=== PATIENT | female | born 1990 | race Caucasian/White ===

== ENCOUNTER 2017-08-06 09:38 | Emergency (ER) | payer BC ==
[2017-08-06 10:46] VITALS: BP 125/67
--- NOTE | 2017-08-06 11:05 | UC ---
Ear Complaint HPI - HPI Summary HPI Summary: patient had an upper respiratory infection all week long---last nigh she developed worsening right ear pain and decreased hearing--- - History of Current Complaint Chief Complaint: UCEar Stated Complaint: CONGESTION/RT EAR COMP Time Seen by Provider: 08/06/17 10:57 Hx Obtained From: Patient Hx Last Menstrual Period: ~07/09/17 ?: No Onset/Duration: Sudden Onset Pain Intensity: 3 Pain Scale Used: 0-10 Numeric Aggravating Factors: Nothing Alleviating Factors: Nothing Associated Signs/Symptoms: Positive: Hearing Loss, URI Symptoms - Allergies/Home Medications Allergies/Adverse Reactions: Allergies Allergy/AdvReac Type Severity Reaction Status Date / Time No Known Allergies Allergy Verified 08/06/17 10:41 Home Medications: Home Medications Guaifenesin/Dextromethorphan [Mucinex Dm ER 1,200-60 mg Tab] 1 tab PO Q12H PRN 08/06/17 [History Confirmed 08/06/17] PMH/Surg Hx/FS Hx/Imm Hx Previously Healthy: Yes - Surgical History Surgical History: None - Family History Known Family History: Positive: None - Social History Occupation: Employed Full-time Lives: With Family Alcohol Use: None Substance Use Type: None Smoking Status (MU): Never Smoked Tobacco Review of Systems Constitutional: Negative Skin: Negative Eyes: Negative ENT: Ear Ache - right Respiratory: Negative Cardiovascular: Negative Gastrointestinal: Negative Genitourinary: Negative Motor: Negative Neurovascular: Negative Musculoskeletal: Negative Neurological: Negative Psychological: Negative Is Patient Immunocompromised?: No All Other Systems Reviewed And Are Negative: Yes Physical Exam Triage Information Reviewed: Yes Appearance: Well-Appearing, No Pain Distress, Well-Nourished Vital Signs: Initial Vital Signs Temp 98.4 F 08/06/17 10:39 Pulse 78 08/06/17 10:39 Resp 16 08/06/17 10:39 BP 125/67 08/06/17 10:39 Pulse Ox 100 08/06/17 10:39 Vital Signs Reviewed: Yes Eye Exam: Normal Eyes: Positive: Conjunctiva Clear ENT Exam: Normal ENT: Positive: Normal ENT inspection, Hearing grossly normal, Pharynx normal, Nasal congestion, TMs normal - left---right is occluded with cerumen. Negative : Tonsillar swelling, Tonsillar exudate, Trismus, Muffled voice, Hoarse voice, Dental tenderness Dental Exam: Normal Neck exam: Normal Neck: Positive: Supple, Nontender, No Lymphadenopathy Respiratory Exam: Normal Respiratory: Positive: Chest non-tender, Lungs clear, Normal breath sounds, No respiratory distress, No accessory muscle use Cardiovascular Exam: Normal Cardiovascular: Positive: RRR, No Murmur, Pulses Normal, Brisk Capillary Refill Musculoskeletal Exam: Normal Musculoskeletal: Positive: Strength Intact, ROM Intact Neurological Exam: Normal Neurological: Positive: Alert, Muscle Tone Normal Psychological Exam: Normal Skin Exam: Normal Re-Evaluation - Re-Evaluation First Eval Change: Improved - HEARING IMPROVED MOST OF PAIN RESOLCED DOES HAVE FLUID BEHIND EAR DRUM Ear Complaint Course/Dx - Course Course Of Treatment: Add Flonase and Sudafed, increase fluids follow with pcp prn - Differential Dx/Diagnosis Provider Diagnoses: Right serrous otitis Discharge - Sign-Out/Discharge Documenting (check all that apply): Discharge/Admit/Transfer - Discharge Plan Condition: Stable Disposition: HOME Prescriptions: Fluticasone NASAL SPRAY 50MCG* [Flonase NASAL SPRAY 50MCG*] 2 spray BOTH NARES DAILY #1 btl Patient Education Materials: Pseudoephedrine (By mouth), Fluticasone (Into the nose), Cerumen Impaction (ED), Serous Otitis Media (ED) Referrals: Lia Smith MD [Primary Care Provider] - If Needed - Billing Disposition and Condition Condition: STABLE Disposition: Home
== END 2017-08-06 11:34 | disposition home or self-care (01) ==
LOC: UCCORT 09:38
DX: H65.91 Unspecified nonsuppurative otitis media, right ear (principal)
CPT/HCPCS: 99203; G0463

== ENCOUNTER 2018-03-31 12:02 | Emergency (ER) | payer BC ==
--- OUTSIDE RECORDS SUMMARY | 2018-03-31 13:30 | XMS REPORT | Continuity of Care Document ---
:1990 External Reference #:[id number] Author Name Lia Tompkins MD Address [address] [facility] [place] [address] Care Team Providers Name Role Phone Lia Tompkins MD Care Team Information Diplomatic Interpreter/Translator Unavailable Payers Type Date Identification Numbers Payment Provider Subscriber Effective: 2018 Policy Number: [id number] [facility] [employer] Chen Galaviz Group Number: [id number] [address] PayID: [id number] [place] [address] Effective: 2013 Policy Number: [id number] [facility] [employer] Chen Galaviz Expires: 2016 Group Number: [id number] [address] PayID: [id number] [place] [address] Effective: 2016 Policy Number: [id number] [facility] Ppo Levi Patelravin Expires: 2018 PayID: [id number] [address] [address] [place] [address] Advance Directives Description No Information Available Problems Description No Information Family History Date Family Member(s) Problem(s) Comments Father Good Health Mother Good Health Social History Type Date Description Comments Sex Unknown Education Higest level completed, from [employer] in Bachelor's Degree recreation therapy. Marital Status Single Lives With Roommate Diet Healthy, Well Balanced Pets None Work Status Currently Working [employer] at [employer] Abuse No history of abuse Tobacco Use Start: Unknown Never Smoked Cigarettes Smoking Status Reviewed: 03/01/18 Never Smoked Cigarettes ETOH Use Occasionally consumes alcohol Tobacco Use Start: Unknown Patient has never smoked Currently Active Patient is currently sexually active Allergies, Adverse Reactions, Alerts Description No Known Drug Allergies Medications Medication Date Status Form Strength Qnty SIG Indications Ordering Provider Mirena (52 MG) 01/30/ Active IUD 20mcg/24H inserted Luis 2018 R 02/2016 MD Lia Escitalopram 01/30/ Active Tablets 10mg 90tab 1 by mouth F41.9 Moriah Tompkins 2018 s every day MD Lia Permethrin 01/30/ Hx Cream 5% 60gm apply and R21 Luis 2017 - leave on MD Lia 02/28/ overnight - 2018 shower off in the morning No Active 06/12/ Hx Unknown Medications 2017 - 2017 Betamethasone 06/12/ Hx Cream 0.05% 45gm 1 thin R21 Lofton, Dipropionate 2018 - application Ramirez 02/28/ to arm twice DO 2018 daily for 14 days Escitalopram 03/20/ Hx Tablets 10mg 30tab 1 by mouth O90.6 Moriah Tompkins 2015 - s every day MD Lia 2017 Ortho Tri-Cyclen 03/27/ Hx Tablets 0.18/0.21 30tab 1 by mouth V25.01 Luis (28) 2014 - 5/0.25 s daily - MD Lia 03/27/ mg-35 mcg first dose 2014 Ortho Tri-Cyclen 03/27/ Hx Tablets 0.18/0.21 30tab 1 by mouth V25.01 Luis (28) 2014 - 5/0.25 s daily - MD Lia 04/16/ mg-35 mcg first dose 2015 Famciclovir 03/27/ Hx Tablets 500mg 30tab 2 pills po x 054.10 Luis 2014 - s 12 hours x 1 MD Lia 06/12/ day prn 2018 outbreak No Active 03/11/ Hx Unknown Medications 2014 - 2014 Nitrofurantoin 03/04/ Hx Capsules 100mg 14cap 1 by mouth 788.1 Digiovann Monohyd Macro 2015 - s twice a day a, 03/11/ for 7 days Marleny, 2014 DIRECTOR PRODUCT Metrogel-Vaginal 03/04/ Hx Gel 0.75% 70gm 1 applicator 623.8 Digiovann 2015 - bid for 5 a, 03/09/ days Marleny, 2014 DIRECTOR PRODUCT No Active 03/03/ Hx Digiovann Medications 2015 - a, 03/04/ Marleny, 2015 DIRECTOR PRODUCT Mucinex / Hx Tablets 600mg 1 tab by Unknown 0000 - ER 12HR mouth every hours 2019 Immunizations CPT Code Status Date Vaccine Lot # [id number] Given 12/22/2017 Flu Vaccine NOS 02432 Given 08/21/2007 Menactra/Menveo Meningococcal Vaccine 96474 Given 05/31/2007 HPV Vaccine (Gardasil) 3 Dose Schedule 20368 Given 01/29/2007 HPV Vaccine (Gardasil) 3 Dose Schedule 20931 Given 11/27/2006 HPV Vaccine (Gardasil) 3 Dose Schedule 62687 Given 12/09/2003 Immunization Td 7 Yrs Or Older 21301 Given 08/02/1994 MMR Virus Immunization 61888 Given 10/19/1993 DTP Immunization 03092 Given 10/19/1993 IPV / Poliomyelitis Immunization 32636 Given 10/19/1993 Hepatitis B Vac Ped/Adolescent 3 Dose Schedule 32557 Given 10/08/1992 Hepatitis B Vac Ped/Adolescent 3 Dose Schedule 35740 Given 07/30/1992 Hepatitis B Vac Ped/Adolescent 3 Dose Schedule 23900 Given 05/10/1991 DTP Immunization 73279 Given 04/21/1991 IPV / Poliomyelitis Immunization 43054 Given 01/24/1991 MMR Virus Immunization 03570 Given 01/24/1991 Hib Pedvaxhib Vac 3 Dose Schedule 42687 Given 09/18/1990 Hib Pedvaxhib Vac 3 Dose Schedule 98558 Given 07/12/1990 Hib Pedvaxhib Vac 3 Dose Schedule 00841 Given 04/20/1990 DTP Immunization 94024 Given 04/20/1990 Hib Pedvaxhib Vac 3 Dose Schedule 64465 Given 02/01/1990 IPV / Poliomyelitis Immunization 47387 Given 02/01/1990 DTP Immunization 08637 Given 1989 IPV / Poliomyelitis Immunization 07431 Given 1989 DTP Immunization 97105 Refused 03/04/2014 Immunization Td 7 Yrs Or Older Vital Signs Date Vital Result Comment 03/01/2018 4:24pm Weight 224.38 lb Heart Rate 50 /min BP Systolic 120 mmHg BP Diastolic 68 mmHg Respiratory Rate 16 /min Height 69.5 inches 5'9.50" O2 % BldC Oximetry 98 % Ra BMI (Body Mass Index) 32.7 kg/m2 01/30/2018 11:07am Weight 224.00 lb Heart Rate 54 /min BP Systolic 118 mmHg BP Diastolic 68 mmHg Respiratory Rate 16 /min Height 69.5 inches 5'9.50" O2 % BldC Oximetry 98 % Ra BMI (Body Mass Index) 32.6 kg/m2 06/12/2017 1:17pm Weight 246.00 lb Heart Rate 76 /min BP Systolic 132 mmHg BP Diastolic 72 mmHg Respiratory Rate 18 /min Height 69.5 inches 5'9.50" BMI (Body Mass Index) 35.8 kg/m2 04/17/2015 2:28pm Weight 236.00 lb Heart Rate 60 /min BP Systolic 112 mmHg BP Diastolic 70 mmHg Respiratory Rate 18 /min Height 69.5 inches 5'9.50" BMI (Body Mass Index) 34.3 kg/m2 03/20/2015 1:11pm Weight 230.00 lb Heart Rate 76 /min BP Systolic 102 mmHg BP Diastolic 60 mmHg Respiratory Rate 18 /min Height 69.5 inches 5'9.50" BMI (Body Mass Index) 33.5 kg/m2 03/27/2014 1:29pm Weight 228.00 lb Heart Rate 74 /min BP Systolic 112 mmHg BP Diastolic 80 mmHg Respiratory Rate 18 /min Height 69.5 inches 5'9.50" BMI (Body Mass Index) 33.2 kg/m2 03/04/2014 9:13am Body Temperature 98.2 F Weight 232.00 lb Heart Rate 64 /min BP Systolic 112 mmHg BP Diastolic 88 mmHg Respiratory Rate 18 /min Height 69.50 inches 5'9.50" Done On 03/04/14 BMI (Body Mass Index) 33.8 kg/m2 07/22/2013 8:33am Weight 245.00 lb Heart Rate 66 /min BP Systolic 114 mmHg BP Diastolic 70 mmHg Respiratory Rate 18 /min Height 70 inches 5'10" 06/14/2013 2:08pm Weight 244.00 lb Heart Rate 80 /min BP Systolic 130 mmHg BP Diastolic 80 mmHg Respiratory Rate 18 /min Height 70 inches 5'10" Results Test Date Facility Test Result H/L Range Note CBC with Auto Diff-fcmg 01/30/2018 [facility] WBC 7.6 K/uL 4.1-11.0 RBC 5.24 M/uL 4.00-5.40 Hemoglobin 16.3 gm/dL High 12.0-16.0 Hematocrit 47.0 % 36.0-47.0 MCV 89.8 fL 80.0-97.0 MCH 31.1 pg 27.0-32.0 MCHC 34.7 g/dL 32.0-36.0 RDW 12.9 % 11.5-14.5 PLT Count 204 K/ul 140-400 MPV 10.4 FL 7.1-10.7 Neutrophil 66.3 % 35.0-75.0 Lymphocyte 27.6 % 16.0-52.0 Monocyte 4.5 % 2.0-10.0 Eosinophil 0.6 % 0.0-5.0 Basophil 1.0 % 0.0-4.0 Abs Neutrophils 5.0 K/uL 2.1-8.0 Abs Lymphocytes 2.1 K/uL 0.8-5.5 Abs Monocytes 0.3 K/uL 0.1-1.0 Abs Eosinophils 0.0 K/uL 0.0-0.5 Abs Basophils 0.1 K/uL 0.0-0.3 Laboratory test finding 01/30/2018 [facility] TSH 1.53 uIU/mL 0.35-4.94 Comprehensive Met Panel-FCMG 01/30/2018 [facility] Sodium 140 mmol/L 135- 146 1 Potassium 4.4 mmol/L 3.5-5.2 Chloride# 104 mmol/L 97-110 2 Carbon Dioxide 29 mmol/L 24-34 Glucose 88 mg/dL 70-105 BUN 14 mg/dL 6-26 Creatinine 0.8 mg/dL 0.5-1.4 Calcium 9.7 mg/dL 8.5-10.2 Total Protein 7.0 g/dL 6.0-8.0 Albumin 4.5 g/dL 3.6-4.9 Globulin 2.5 g/dL 2.0-3.5 A/G Ratio 1.8 Ratio 1.0-2.2 Total Bilirubin 0.6 mg/dL 0.1-1.3 Alkaline Phosphatase 66 U/L 24-140 Alt 11 U/L 3-42 Ast 14 U/L 8-42 Anushka Egfr >60 >60 3 Non Anushka Egfr >60 >60 4 Anion Gap 7 mmol/L 5-15 5 Lipid 01/30/2018 [facility] Cholesterol 235 mg/dL High 50-199 Triglycerides 99 mg/dL 30-200 HDL 49 mg/dL 35-85 6 Chol/ HDL Ratio 4.8 ratio 3.7-5.6 VLDL 20 mg/dL 2-29 LDL (Calc) 167 mg/dL High 20-99 7 Hemoglobin/Hematocrit 01/27/2016 [facility] Hemoglobin 13.5 gm/dL N 11.6-15.8 8 (315)- - Hematocrit 39.7 % N 36.0-46.1 CBC 01/25/2016 [facility] White Blood Count 11.5 K/uL High 3.1-10.7 (315)- - Red Blood Count 4.63 M/uL N 3.90-5.40 Hemoglobin 14.5 gm/dL N 11.6-15.8 Hematocrit 40.8 % N 36.0-46.1 Mean Cell Volume 88.1 fl N 80.9-99.0 Mean Corpuscular HGB 31.3 pg N 25.9-32.7 Mean Corpuscular HGB Conc 35.5 g/dL High 30.8-34.3 Platelet Count 145 K/uL Low 155-360 Red Cell Distri Width %CV 13.9 % N 11.7-14.4 Mean Platelet Volume 12.7 fL High 8.9-12.4 Type And Screen 01/25/2016 [facility] Patient Blood Type A POS N (315)- - Antibody Screen Negative N Negative Laboratory 01/25/2016 [facility] Treponema Nonreactive N Nonreactive 9 test finding (315)- - Antibody [place] Vaginal Strep 12/23/2015 [facility] Vaginal BETA Abnormal 10, Screen (315)- - Strep STREPTOCOCC 11 Screen <SEE NOTE> Quantity FROM BROTH N Recommended Therapy: PENICILLIN OR AM <SEE NOTE> N 12 Laboratory test finding 03/20/2015 [facility] TSH 1.10 uIU/mL 0.35-4.94 Comprehensive Metabolic (CMP) 03/20/2015 [facility] Sodium 139 mmol/L 134- 142 Potassium 4.1 mmol/L 3.5-5.2 Chloride 104 mmol/L 97-109 Carbon Dioxide 28 mmol/L 24-34 Glucose 80 mg/dL 70-105 BUN 16 mg/dL 6-26 Creatinine 0.9 mg/dL 0.5-1.4 Calcium 9.5 mg/dL 8.5-10.2 Total Protein 6.6 g/dL 6.0-8.0 Albumin 4.1 g/dL 3.6-4.9 Globulin 2.5 g/dL 2.0-3.5 A/G Ratio 1.6 Ratio 1.0-2.2 Total Bilirubin 0.5 mg/dL 0.1-1.3 Alkaline Phosphatase 55 U/L 24-140 Alt 11 U/L 3-42 Ast 14 U/L 8-42 Anion Gap 11 mmol/L 6-14 Anushka Egfr >60 >60 13 Non Anushka Egfr >60 >60 14 CBC With Auto Diff 03/20/2015 [facility] WBC 5.9 K/uL 4.1-11.0 RBC 4.84 M/uL 4.00-5.40 Hemoglobin 14.7 gm/dL 12.0-16.0 Hematocrit 43.8 % 36.0-47.0 MCV 90.6 fL 80.0-97.0 MCH 30.4 pg 27.0-32.0 MCHC 33.6 g/dL 32.0-36.0 RDW 13.1 % 11.5-14.5 PLT Count 185 K/ul 140-400 Neutrophil 51.5 % 35.0-75.0 Lymphocyte 41.6 % 16.0-52.0 Monocyte 5.6 % 2.0-10.0 Eosinophil 0.5 % 0.0-5.0 Basophil 0.8 % 0.0-4.0 Abs Neutrophils 3.0 K/uL 2.1-8.0 Abs Lymphocytes 2.5 K/uL 0.8-5.5 Abmon 0.3 K/uL 0.1-1.0 Abs Eosinophils 0.0 K/uL 0.0-0.5 Abs Basophils 0.0 K/uL 0.0-0.3 Hemoglobin/Hematocrit 12/29/2014 [facility] Hemoglobin 11.7 gm/dL 11.6-15.8 (315)- - Hematocrit 34.2 % Low 36.0-46.1 CBC 12/28/2014 [facility] White Blood Count 13.2 K/uL High 3.1-10.7 (315)- - Red Blood Count 4.68 M/uL 3.90-5.40 Hemoglobin 14.7 gm/dL 11.6-15.8 Hematocrit 41.2 % 36.0-46.1 Mean Cell Volume 88.0 fl 80.9-99.0 Mean Corpuscular HGB 31.4 pg 25.9-32.7 Mean Corpuscular HGB Conc 35.7 g/dL High 30.8-34.3 Platelet Count 167 K/uL 155-360 Red Cell Distri Width %CV 13.7 % 11.7-14.4 Mean Platelet Volume 12.9 fL High 8.9-12.4 Type And Screen 12/28/2014 [facility] Patient Blood Type A POS (315)- - Antibody Screen Negative Negative Laboratory test 12/03/2014 [facility] Vaginal Strep See Note 15 finding (315)- - Screen Urinalysis With 11/22/2014 [facility] Urine Color STRAW Yellow Microscopic (315)- - Urine Clarity CLEAR Clear Urine Glucose - Dipstick NEGATIVE mg/dL Negative Urine Bilirubin - Dipstick NEGATIVE Negative Urine Ketone NEGATIVE mg/dL Negative Urine Specific [place] <=1.005 Low 1.010-1.030 Urine Blood NEGATIVE Negative Urine PH 6.0 Low 6.5-7.5 Urine Protein - Dipstick NEGATIVE mg/dL Negative Urine Urobilinogen - Dipstick 0.2 E.U./dL 0.2-1.0 Urine Nitrite - Dipstick NEGATIVE Negative Urine Leuk Esterase SMALL High Negative Urine RBC NONE SEEN rbc/hpf 0-2 Urine WBC 0-2 wbc/hpf 0-7 Urine Epithelial Cells FEW NONESEEN/lpf Urine Bacteria VERY FEW NONESEEN Urine Mucus SMALL NONESEEN Urine Screen 11/22/2014 [facility] Urine Screen See Note 16 (315)- - Laboratory test 03/04/2014 [facility] Urine Culture Microbiology res Abnormal 17 finding <SEE NOTE> Laboratory test 07/22/2013 N2N/CCD Import Cytology Pap See Note 18 finding Laboratory test 06/14/2013 N2N/CCD Import Alb/Glob 1.4 ratio finding Albumin 4.1 g/dL 3.5-5.0 Alkaline Phosphatase 62 U/L 50-136 Anion Gap 13 mEq/L 8-16 BUN 10 mg/dL 5-23 BUN/Creat 16.6 ratio Bas% 0.4 % 0.0-1.1 Baso # 0.04 K/uL 0.0-0.1 Bilirubin,Total 0.4 mg/dL 0.2-1.2 Calcium 9.3 mg/dL 8.5-10.1 Carbon Dioxide 25 mEq/L 18-29 Chloride 108 mmol/L High 98-107 Creatinine 0.6 mg/dL 0.5-1.4 Eo% 0.4 % 0.0-6.6 Eos # 0.04 K/uL 0.0-0.5 Globulin 3.0 g/dL 1.9-4.3 Glom Filtration Rate, Estimate >60 mL/min >60 Glucose 83 mg/dL 76-115 Hematocrit 44.0 % 36.0-46.1 Hemoglobin 15.2 gm/dL 11.6-15.8 If >60 mL/min >60 19 Lymph # 2.53 K/uL 0.8-3.4 Lymph % 26.5 % 17.0-46.1 Mean Cell Volume 90.7 fl 80.9-99.0 Mean Corpuscular HGB 31.3 pg 25.9-32.7 Mean Corpuscular HGB Conc 34.5 g/dL High 30.8-34.3 Mean Platelet Volume 12.7 fL High 8.9-12.4 [place] # 0.59 K/uL 0.3-0.9 [place] % 6.2 % 4.3-13.2 Neut# 6.36 K/uL 1.0-7.0 Neut% 66.5 % 40.4-72.8 Platelet Count 192 K/uL 155-360 Potassium 3.8 mmol/L 3.5-5.1 Red Blood Count 4.85 M/uL 3.90-5.40 Red Cell Distri Width %CV 13.5 % 11.7-14.4 Red Cell Distri Width SD 43.6 fl 3-47 SGPT/Alt 20 U/L Low 30-65 Sgot/Ast 14 U/L Low 16-40 Sodium 142 mmol/L 136-145 Thyroid Stim Hormone 1.35 uIU/mL 0.49-4.67 Total Protein 7.1 g/dL 6.3-8.0 Vitamin D,25-Hydroxy 36.0 ng/mL 30.0-100.0 20 White Blood Count 9.6 K/uL 3.1-10.7 1 Updated reference range on new analyzer 2 Updated reference range on new analyzer 3 Concerning GFR Guidelines for Americans: Normal function or mild renal disease, if clinically at risk: >/=60 mL/min Moderately decreased: 30-59 Severely decreased: 15-29 Renal failure: <15 4 Concerning GFR Guidelines: Normal function or mild renal disease, if clinically at risk: >/=60 mL/min Moderately decreased: 30-59 Severely decreased: 15-29 Renal failure: <15 Glomerular Filtration Rate (GFR) is estimated based on the MDRD equation, which assumes a steady state for creatinine as recommended by the National Kidney Disease Education Program in conjunction with the National Institutes of Health and the National Kidney Foundation. Clinical conditions in which it may be necessary to measure GFR by using clearance methods include extremes of age and body size, severe malnutrition or obesity, diseases of skeletal muscle, paraplegia or quadriplegia, vegetarian diet, rapidly changing kidney function, and calculation of the dose of potentially toxic drugs that are excreted by the kidneys. 5 Updated Reference Range -2017 6 Per NCEP ATP III Guidelines: Results lower than 40 mg/dL are suggestive of increased risk for coronary artery disease. Results > or=to 60 mg/dL are considered a negative risk factor. 7 Per NCEP ATP III Guidelines: Normal Population <130 Patients with medical conditions: CHD/DM Optimal: <100 Borderline high: 130-159 High: 160-189 Very high: >189 8 INDUCTION 9 Please Note: A nonreactive test result does not exclude the possibility of exposure to, or infection with syphilis. T. pallidum antibodies may be undetectable in some stages of the infection and in some clinical conditions. 10 Z36 11 BETA STREPTOCOCCUS GROUP B 12 PENICILLIN OR AMPICILLIN. 13 Concerning GFR Guidelines for Americans: Normal function or mild renal disease, if clinically at risk: >/=60 mL/min Moderately decreased: 30-59 Severely decreased: 15-29 Renal failure: <15 14 Concerning GFR Guidelines: Normal function or mild renal disease, if clinically at risk: >/=60 mL/min Moderately decreased: 30-59 Severely decreased: 15-29 Renal failure: <15 Glomerular Filtration Rate (GFR) is estimated based on the MDRD equation, which assumes a steady state for creatinine as recommended by the National Kidney Disease Education Program in conjunction with the National Institutes of Health and the National Kidney Foundation. Clinical conditions in which it may be necessary to measure GFR by using clearance methods include extremes of age and body size, severe malnutrition or obesity, diseases of skeletal muscle, paraplegia or quadriplegia, vegetarian diet, rapidly changing kidney function, and calculation of the dose of potentially toxic drugs that are excreted by the kidneys. 15 NO GROUP B STREPTOCOCCI ISOLATED 16 11/22/14 LAB.[facility] Deleted by Reflex Group [facility] 17 Microbiology results SOURCE MIDU COLONY COUNT >100,000 CFU/ML PRELIMINARY RESULT Gram Negative Akil. ID & Sensitivity to Follow. FINAL RESULT Escherichia coli (Isolate 1) Sensitivity Analysis Isolate 1 --------- AMPICILLIN >16 R AMPICILLIN/SULBACTAM 16/8 I CEFAZOLIN <=2 S CEFEPIME <=8 S CEFTAZIDIME <=1 S CEFTRIAXONE <=1 S CIPROFLOXACIN <=1 S NITROFURANTOIN <=32 S TETRACYCLINE >8 R TRIMETHOPRIM/SULFAMETHOXAZ <=2/38 S S=Sensitive;I=Indeterminate;R=Resistant 18 Cytology Laboratory [address] [place] [address], [facility] [address] [place] [address] CYTOLOGY REPORT Name: Chen Galaviz : 1990 (Age: 22) Sex: F Location: [facility] Med. Rec. # [id number] Date Collected: 07/22/2013 Billing #: [id number] Date Received: 07/22/2013 Requisition # [id number] Physician(s): LIA TOMPKINS MD Source of Specimen: ENDOCERVICAL/ECTOCERVICAL THIN PREP Clinical Information: Date of Last Menstrual Period: 06/25/13 Interpretation: NEGATIVE FOR INTRAEPITHELIAL LESION OR MALIGNANCY. SHIFT IN RAYO SUGGESTIVE OF BACTERIAL VAGINOSIS. Specimen Adequacy: SATISFACTORY FOR EVALUATION. Additional Findings: ENDOCERVICAL/ TRANSFORMATION ZONE PRESENT. tfn Electronic Signature LILIAN Kyle (ASCP) Reported: 07/25/2013 [facility] ICD-9 Code(s) V72.31 A; 616.10 19 Note: Persistent reduction for 3 months or more in an eGFR <60 mL/min/1.73 m2 defines CKD. Patients with eGFR values >/=60 mL/min/1.73 m2 may also have CKD if evidence of persistent proteinuria is present. The original MDRD equation for estimated GFR is not valid for patients less than 18 years of age. Additional information may be found at www.kdoqi.org. 20 Vitamin D deficiency has been defined by the [place] of [employer] and an Endocrine Society practice guideline as a level of serum 25-OH vitamin D less than 20 ng/mL (1,2). The Endocrine Society went on to further define vitamin D insufficiency as a level between 21 and 29 ng/mL (2). 1. IOM ([place] of [employer]). 2010. Dietary reference intakes for calcium and D. [place]: The National Academies Press. 2. Nael MF, Yakelin HENRY, Glenny FERRER, et al. Evaluation, treatment, and prevention of vitamin D deficiency: an Endocrine Society clinical practice guideline. JCEM. 2010; 96(7):1911-30. Performed at: RN - [facility] [place] [id number] Vp Site: Ashly Vyas MD, Phone: [phone] Procedures Date Code Description Status 01/30/2018 05044 Brief Emotional/Behav Assessment W/ Scoring Doc Per Completed Standard Inst Encounters Type Date Location Provider Dx Diagnosis Office Visit 01/30/2018 [facility] Lia Tompkins MD Z68.32 Body mass index (BMI ) 10:30a 32.0-32.9, adult Z13.89 Encounter for screening for other disorder Z01.419 Encntr for hardboard grinder exam (general) (routine) w/o abn findings F41.9 Anxiety disorder, unspecified R21 Rash and other nonspecific skin eruption Office Visit 06/12/2017 1:15p [facility] Yumiko Reyes PA R21 Rash and other nonspecific skin eruption Z68.35 Body mass index (BMI) 35.0-35.9, adult Office Visit 04/17/2015 2:45p [facility] Lia Tompkins MD O90.6 mood disturbance Office Visit 03/20/2015 1:15p [facility] Lia Tompkins MD M25.562 Pain in LEFT knee O90.6 mood disturbance Office Visit 03/27/2014 1:30p [facility] Lia Tompkins MD V25.01 Oral Contraceptive Prescription 054.10 Herpes Simplex Genital Herpes Unspec Office Visit 03/04/2014 9:30a [facility] Marleny Macario, DIRECTOR PRODUCT 788.1 Dysuria 623.8 Vaginal Disorder Noninflammatory Spec Other Plan of Treatment Future Appointment(s):05/31/2018 4:00 pm - Lia Tompkins MD at [facility]01/31/2019 8:15 am - Lia Tompkins MD at [facility]03/01/2018 - Lia Tompkins MDF41.9 Anxiety disorder, unspecifiedComments:doing much better with escitalopram - is tired - recommend she take this closer to bedtime. expectto continue this medication for 6 months then reassess.Follow up:3 mo follow-up without labs hilpeG92.2 Mixed hyperlipidemiaComments:the LDL is elevated but triglycerides and hdl are very good. follow - work on healthy lifestyle.Z68.32 Body mass index (BMI) 32.0-32.9, adult
[2018-03-31 13:35] VITALS: BP 120/73
--- NOTE | 2018-03-31 14:00 | UC ---
Back Pain HPI - HPI Summary HPI Summary: Pt c/o sudden onset of low back baires while " lifting" 130lb weights while working out 3 days ago. Pt has been applying heat and taking ibuprofen with some improvement of pain. Pt is concerned because pain has not resolved. - History of Current Complaint Chief Complaint: UCBackPain Stated Complaint: LOWER BACK PAIN Time Seen by Provider: 03/31/18 13:36 Hx Obtained From: Patient Hx Last Menstrual Period: IUD MIRENA ?: No Onset/Duration: Sudden Onset, Lasting Days, Still Present Timing: Constant Severity Initially: Mild Severity Currently: Moderate Pain Intensity: 5 Pain Scale Used: 0-10 Numeric Back Pain: Is Diffuse - low back Character: Dull, Aching, Stiffness Aggravating Factor(s): Movement, Lifting, Bending Alleviating Factor(s): Rest, Heat, OTC Meds Associated Signs And Symptoms: Positive: Negative - Risk Factors AAA Risk Factors: Negative TAD Risk Factors: Negative Cauda Equina Risk Factors: Negative Epidural Abscess Risk Factors: Negative - Allergies/Home Medications Allergies/Adverse Reactions: Allergies Allergy/AdvReac Type Severity Reaction Status Date / Time No Known Allergies Allergy Verified 03/31/18 13:30 Home Medications: Home Medications Escitalopram Oxalate [Lexapro] 1 tab DAILY 03/31/18 [History Confirmed 03/31/18] Levonorgestrel (Iud) [Mirena IUD] 1 implant ONCE 03/31/18 [History Confirmed ] PMH/Surg Hx/FS Hx/Imm Hx Previously Healthy: Yes - Surgical History Surgical History: None - Family History Known Family History: Positive: Cardiac Disease - Social History Occupation: Employed Full-time Lives: With Family Alcohol Use: Rare Substance Use Type: None Smoking Status (MU): Never Smoked Tobacco Have You Smoked in the Last Year: No Review of Systems All Other Systems Reviewed And Are Negative: Yes Constitutional: Positive: Negative Skin: Positive: Negative Eyes: Positive: Negative ENT: Positive: Negative Respiratory: Positive: Negative Cardiovascular: Positive: Negative Gastrointestinal: Positive: Negative Genitourinary: Positive: Negative Motor: Positive: Decreased ROM - low back pain Neurovascular: Positive: Negative Musculoskeletal: Positive: Arthralgia, Decreased ROM, Myalgia Neurological: Positive: Negative Psychological: Positive: Negative Is Patient Immunocompromised?: No Physical Exam Triage Information Reviewed: Yes Appearance: Well-Appearing Vital Signs: Initial Vital Signs Temp 97.7 F 03/31/18 13:31 Pulse 76 03/31/18 13:31 Resp 16 03/31/18 13:31 BP 120/73 03/31/18 13:31 Pulse Ox 99 03/31/18 13:31 Vital Signs Reviewed: Yes Eye Exam: Normal ENT Exam: Normal Dental Exam: Normal Neck exam: Normal Respiratory Exam: Normal Cardiovascular Exam: Normal Musculoskeletal Exam: Normal Musculoskeletal: Positive: Strength Limited @, ROM Limited @ - c/o pain while lifting lower extreities. Neurological Exam: Normal Psychological Exam: Normal Skin Exam: Normal Back Pain Course/Dx - Differential Dx/Diagnosis Differential Diagnosis/HQI/PQRI: Cauda Equina Syndrome, Herniated Disc, Strain, Sprain Provider Diagnosis: Low back strain Discharge - Sign-Out/Discharge Documenting (check all that apply): Patient Departure All imaging exams completed and their final reports reviewed: No Studies - Discharge Plan Condition: Stable Disposition: HOME Prescriptions: Cyclobenzaprine TAB* [Flexeril 10 MG TAB*] 10 mg PO Q8H PRN #15 tab PRN Reason: Pain Ibuprofen TAB* [Motrin TAB* 800 MG] 800 mg PO Q8H PRN #15 tab PRN Reason: Pain Patient Education Materials: Low Back Strain (ED), Lower Back Exercises (ED) Referrals: Lia Smith MD [Primary Care Provider] - If Needed - Billing Disposition and Condition Condition: STABLE Disposition: Home
== END 2018-03-31 13:55 | disposition home or self-care (01) ==
LOC: UCCORT 12:02
DX: S39.012A Strain of muscle, fascia and tendon of lower back, initial encounter (principal); X50.0XXA Overexertion from strenuous movement or load, initial encounter; Y93.89 Activity, other specified; Y92.9 Unspecified place or not applicable
CPT/HCPCS: 99212; G0463

== ENCOUNTER 2019-04-11 17:38 | Emergency (ER) | payer BC ==
--- OUTSIDE RECORDS SUMMARY | 2019-04-11 17:56 | XMS REPORT | Continuity of Care Document ---
:1990 External Reference #:[id number] Author Name Lia Smith MD Address [address] [place] [address] Care Team Providers Name Role Phone Khai Macario MD - Family Care Team Information Game [employer] Medicine Problems Active Problems Provider Date Anxiety state Lia Smith MD Onset: 07/06/2018 Mixed hyperlipidemia Lia Smith MD Onset: 07/06/2018 Atopic dermatitis Lia Smith MD Onset: 07/06/2018 Social History Type Date Description Comments Sex Unknown Tobacco Use Start: Unknown Never Smoked Cigarettes Smoking Status Reviewed: 04/02/19 Never Smoked Cigarettes ETOH Use Occasionally consumes alcohol Tobacco Use Start: Unknown Patient has never smoked Allergies, Adverse Reactions, Alerts Description No Known Drug Allergies Medications Active Medications SIG Qnty Indications Ordering Date Provider Escitalopram Oxalate 1 by mouth every 90tabs F41.9 Lia Smith, 2018 20mg day MD Tablets Triamcinolone apply to eczema 15gm L20.84 Lia Smith, 07/06/2018 Acetonide rash twice a day 0.5% Cream as needed Mirena (52 MG) inserted 02/2016 Lia Smith, 01/30/2018 20mcg/24HR IUD History Medications Doxycycline Hyclate 1 cap by mouth 20caps R21 Lia Smith MD 2018 - twice a day for 11/02/2018 100mg Capsules 10 days Immunizations CPT Code Status Date Vaccine Lot # [id number] Given 12/15/2018 Influenza Virus Vaccine,Quadrivalent,Split,Preserv Free, 0.5mL,[place] [address] Given 11/20/2018 Tdap (Adacel) Ages 7 And Above Only [id number] Given 12/22/2017 Flu Vaccine NOS 50910 Given 08/21/2007 Menactra/Menveo Meningococcal Vaccine 96747 Given 05/31/2007 HPV Vaccine (Gardasil) 3 Dose Schedule 61626 Given 01/29/2007 HPV Vaccine (Gardasil) 3 Dose Schedule 39537 Given 11/27/2006 HPV Vaccine (Gardasil) 3 Dose Schedule 05243 Given 12/09/2003 Immunization Td 7 Yrs Or Older 18665 Given 08/02/1994 MMR Virus Immunization 46047 Given 10/19/1993 DTP Immunization 51921 Given 10/19/1993 IPV / Poliomyelitis Immunization 78729 Given 10/19/1993 Hepatitis B Vac Ped/Adolescent 3 Dose Schedule 46500 Given 10/08/1992 Hepatitis B Vac Ped/Adolescent 3 Dose Schedule 92048 Given 07/30/1992 Hepatitis B Vac Ped/Adolescent 3 Dose Schedule 99200 Given 05/10/1991 DTP Immunization 88569 Given 04/21/1991 IPV / Poliomyelitis Immunization 49337 Given 01/24/1991 MMR Virus Immunization 35927 Given 01/24/1991 Hib Pedvaxhib Vac 3 Dose Schedule 09058 Given 09/18/1990 Hib Pedvaxhib Vac 3 Dose Schedule 11264 Given 07/12/1990 Hib Pedvaxhib Vac 3 Dose Schedule 66927 Given 04/20/1990 DTP Immunization 72069 Given 04/20/1990 Hib Pedvaxhib Vac 3 Dose Schedule 18295 Given 02/01/1990 IPV / Poliomyelitis Immunization 36521 Given 02/01/1990 DTP Immunization 38452 Given 1989 IPV / Poliomyelitis Immunization 06864 Given 1989 DTP Immunization 53452 Refused 03/04/2014 Immunization Td 7 Yrs Or Older Vital Signs Date Vital Result Comment 04/02/2019 3:02pm Weight 255.00 lb with shoes Heart Rate 76 /min BP Systolic 118 mmHg BP Diastolic 80 mmHg Respiratory Rate 18 /min Height 67 inches 5'7" O2 % BldC Oximetry 99 % Ra BMI (Body Mass Index) 39.9 kg/m2 11/20/2018 2:25pm Heart Rate 77 /min BP Systolic 116 mmHg BP Diastolic 74 mmHg Respiratory Rate 18 /min O2 % BldC Oximetry 98 % Ra Results Test Acquired Date Facility Test Result H/L Range Note Laboratory test 04/02/2019 [facility] Pap Smear Thin <pending> finding Prep-RL Laboratory test 11/20/2018 [facility] Esr 5 mm/hr 0-20 1 finding CRP (C-Reactive) 0.04 mg/dL 0.00-0.75 CBC with Auto Diff-fcmg 11/20/2018 [facility] WBC 5.5 K/uL 4.1-11.0 RBC 4.73 M/uL 4.00-5.40 Hemoglobin 15.0 gm/dL 12.0-16.0 Hematocrit 42.7 % 36.0-47.0 MCV 90.4 fL 80.0-97.0 MCH 31.7 pg 27.0-32.0 MCHC 35.1 g/dL 32.0-36.0 RDW 12.7 % 11.5-14.5 PLT Count 165 K/ul 140-400 MPV 10.8 FL High 7.1-10.7 Neutrophil 58.5 % 35.0-75.0 Lymphocyte 34.6 % 16.0-52.0 Monocyte 5.9 % 2.0-10.0 Eosinophil 0.4 % 0.0-5.0 Basophil 0.6 % 0.0-4.0 Abs Neutrophils 3.2 K/uL 2.1-8.0 Abs Lymphocytes 1.9 K/uL 0.8-5.5 Abs Monocytes 0.3 K/uL 0.1-1.0 Abs Eosinophils 0.0 K/uL 0.0-0.5 Abs Basophils 0.0 K/uL 0.0-0.3 Iron Panel 11/20/2018 [facility] Iron, Total 107 g/dL 50-170 Transferrin 281.0 mg/dL 203.0-362.0 Tibc (calc) 393 g/dL 261-478 % Iron Saturation 27.2 % 13.0-45.0 Laboratory test finding 11/20/2018 [facility] Vitamin B12 334 pg/mL 180- 914 Comprehensive Met Panel-[facility] 11/20/2018 [facility] Sodium 139 mmol/L 135- 146 2 Potassium 4.0 mmol/L 3.5-5.2 Chloride# 102 mmol/L 97-110 3 Carbon Dioxide 29 mmol/L 24-34 Calcium 9.5 mg/dL 8.5-10.5 4 Glucose 86 mg/dL 70-105 BUN 17 mg/dL 6-26 Creatinine 0.8 mg/dL 0.5-1.4 Total Protein 6.9 g/dL 6.0-8.0 Albumin 4.4 g/dL 3.6-4.9 Globulin 2.5 g/dL 2.0-3.5 A/G Ratio 1.8 Ratio 1.0-2.2 Total Bilirubin 0.5 mg/dL 0.1-1.3 Alkaline Phosphatase 52 U/L 24-140 Alt 13 U/L 3-42 Ast 14 U/L 8-42 Anion Gap 8 mmol/L 5-15 5 Female Egfr 104 >60 6 Male Egfr 123 >60 7 Laboratory test finding 11/20/2018 [facility] TSH 2.05 uIU/mL 0.35-4.94 Laboratory test finding 11/20/2018 [facility] Ebv Early Ag Igg NEGATIVE ( Neg) 8 Ebv Nuclear Ag Igg POSITIVE (Neg) 9 Ebv Vca Igg POSITIVE (Neg) 10 Ebv Vca Igm NEGATIVE (Neg) 11 Lyme Igm/Igg AB -RL 10/24/2018 [facility] Lyme Igm/Igg AB @ NEGATIVE (Neg) 12 1 today 2 Updated reference range on new analyzer 3 Updated reference range on new analyzer 4 Updated reference range 06-13-2018 5 Updated Reference Range 6 Concerning GFR Guidelines for Americans: Normal function or mild renal disease, if clinically at risk: >/= 60 mL/min Moderately decreased: 30-59 Severely decreased: 15-29 Renal failure: <15 There is reduced accuracy above 60ml/min/1.73 m squared, but the numeric value may be clinically useful in the near 60 range 7 Concerning GFR Guidelines: Normal function or mild renal disease, if clinically at risk: >/= 60 mL/min Moderately decreased: 30-59 Severely decreased: 15-29 Renal failure: <15 There is reduced accuracy above 60ml/min/1.73 m squared, but the numeric value may be clinically useful in the near 60 range Glomerular Filtration Rate (GFR) is estimated based on the CKD-EPI equation, which assumes a steady state for [...] drugs that are excreted by the kidneys. 8 Unless otherwise specified, testing performed by [facility] [place] [address] 9 May indicate a current or previous infection. Unless otherwise specified, testing performed by [facility] [address] [place] [id number] 10 May indicate a current or previous infection. Unless otherwise specified, testing performed by [facility] [address] [place] [id number] 11 Unless otherwise specified, testing performed by [facility] [address] [place] [address] 12 A Negative serologic test for Lyme Disease indicates no serologic evidence of infection with B burgdorferi at the time this specimen was collected. A repeat specimen should be collected in 2 to 4 weeks if clinically indicated. Unless otherwise specified, testing performed by [facility] [address] [place] [id number] Procedures Date Code Description Status 04/02/2019 53065 Brief Emotional/Behav Assessment W/ Scoring Doc Per Completed [facility] Devices Description No Information Available Encounters Type Date Location Provider Dx Diagnosis Office Visit 11/20/2018 [facility] Lia Smith MD Z23 Encounter for 2:30p immunization R53.83 Other fatigue Office Visit 10/23/2018 4:00p [facility] Orquidea Johnson NP R21 Rash and other nonspecific skin eruption Assessments Date Code Description Provider 04/02/2019 E66.9 Obesity, unspecified Lia Smith MD 04/02/2019 Z01.419 Encounter for gynecological examination Lia Smith MD (general) (routine) without abnormal findings 04/02/2019 Z13.31 Encounter for screening for depression Lia Smith MD 04/02/2019 F41.9 Anxiety disorder, unspecified Lia Smith MD 04/02/2019 E78.2 Mixed hyperlipidemia Lia Smith MD 04/02/2019 L20.84 Intrinsic (allergic) eczema Lia Smith MD 04/02/2019 F33.8 Other recurrent depressive disorders Lia Smith MD 04/02/2019 Z68.39 Body mass index (BMI) 39.0-39.9, adult Lia Smith MD 11/20/2018 Z23 Encounter for immunization Lia Smith MD 11/20/2018 R53.83 Other fatigue Lia Smith MD 11/20/2018 R53.83 Other fatigue Lia Smith MD 11/20/2018 R53.83 Other fatigue Schedule, Laboratory 11/20/2018 R53.83 Other fatigue [facility] 10/24/2018 R21 Rash and other nonspecific skin eruption Lia Smith MD 10/24/2018 R21 Rash and other nonspecific skin eruption Schedule, Laboratory 10/23/2018 R21 Rash and other nonspecific skin eruption Or[facility] Johnson, JENNIFER Plan of Treatment Future Appointment(s):10/03/2019 3:00 pm - Lia Smith MD at [facility]04/03/2020 3:00 pm - Lia Smith MD at [facility]04/02/2019 - Lia Smith MDE66.9 Obesity, unspecifiedComments:Counseled about strategies for weight loss and the impact of weight on chronic medical problems.Work on healthy lifestyle, with regular exercise (20 min daily will help) and eat a healthy diet. Formal diet plans work best.Z01.419 Encounter for gynecological examination (general) ( routine) without abnormal findingsComments:discussed guidelines for pap smear. In healthy women between the ages of 21 and 30 who are at low risk for cervical cancer, pap can be done every 3 years.Follow up:1-year FYE ? Pap smear 6-months follow up without labs prior.Z13.31 Encounter for screening for depressionComments:screening for depression is positive PHQ-9 = 9 - this is mild depression - suspect seasonal affective vclsfgabZ51.9 Anxiety disorder, unspecifiedComments:Inadequate control. Increase dose of medication.E78.2 Mixed hyperlipidemiaComments:diet controlled - the HDL and triglycerides are very good. LDL is elevated but medication is not needed at this time.L20.84 Intrinsic (allergic) eczemaComments:Continue with current [id number] Other recurrent depressive disordersComments:suspect seasonal affective disorder. counseled about strategies to manage this condition. please call if symptoms worsen.Z68.39 Body mass index (BMI) 39.0-39.9, adultComments:The BMI is the ratio of height to weight. Weight loss is desirable. your goal BMI is between 18.9 and 25. Your are overweight. work on improving your diet to help with weight loss.AllComments:This is stable and intact. Functional Status Description No Information Available Mental Status Description No Information Available Referrals Description No Information Available
[2019-04-11 17:59] VITALS: BP 106/85
--- NOTE | 2019-04-11 18:54 | UC ---
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 Cloudy urine. Flank discomfort. " -denies pregancny -no f/c/body aches/n/v -slight low back pain -no rash. -has had UTI many yrs ago - History Of Current Complaint Chief Complaint: UCGU Stated Complaint: URINARY Time Seen by Provider: 04/11/19 18:37 Hx Last Menstrual Period: 03/2019 Pain Intensity: 2 - Allergies/Home Medications Allergies/Adverse Reactions: Allergies Allergy/AdvReac Type Severity Reaction Status Date / Time No Known Allergies Allergy Verified 04/11/19 17:56 Home Medications: Home Medications Escitalopram Oxalate [Lexapro] 1 tab PO DAILY 03/31/18 [History Confirmed ] Levonorgestrel (Iud) [Mirena IUD] 1 implant ONCE 03/31/18 [History Confirmed ] Nitrofurantoin Monohyd/M-Cryst [Macrobid 100 mg Capsule] 100 mg PO BID #14 cap 04/11/19 [Rx] Pumpkin Seed Extract/Soy Germ [Azo Bladder Control Capsule] 1 cap PO ONCE [History Confirmed 04/11/19] PMH/Surg Hx/FS Hx/Imm Hx Previously Healthy: Yes - Surgical History Surgical History: None - Family History Known Family History: Positive: Cardiac Disease - Social History Alcohol Use: None Substance Use Type: None Smoking Status (MU): Never Smoked Tobacco Have You Smoked in the Last Year: No Review of Systems All Other Systems Reviewed And Are Negative: Yes Constitutional: Positive: Negative Skin: Positive: Negative. Negative: Rash Eyes: Positive: Negative ENT: Positive: Negative Respiratory: Positive: Negative Cardiovascular: Positive: Negative Gastrointestinal: Positive: Abdominal Pain - SP pressure. sx x 4 d. Negative: Vomiting, Diarrhea, Nausea Genitourinary: Positive: Dysuria, Frequency Motor: Positive: Negative Neurovascular: Positive: Negative Musculoskeletal: Positive: Negative Neurological/Mental Status: Positive: Negative Psychological: Positive: Negative Is Patient Immunocompromised?: No Physical Exam Triage Information Reviewed: Yes Appearance: Well-Appearing, No Pain Distress, Well-Nourished - good historian. very pleasant Vital Signs: Initial Vital Signs Temp 97.3 F 04/11/19 17:55 Pulse 74 04/11/19 17:55 Resp 20 04/11/19 17:55 BP 106/85 04/11/19 17:55 Pulse Ox 100 04/11/19 17:55 Eye Exam: Normal ENT Exam: Normal ENT: Positive: Pharynx normal - mmm Neck exam: Normal Neck: Positive: Supple, Nontender, No Lymphadenopathy Respiratory Exam: Normal Respiratory: Positive: Lungs clear, Normal breath sounds, No respiratory distress, No accessory muscle use Cardiovascular Exam: Normal Cardiovascular: Positive: RRR Abdomen Description: Positive: Soft, Other: - + mild suprapubic tenderness. Negative: CVA Tenderness (R), CVA Tenderness (L), Distended, Guarding, McBurney' s Point Tenderness, Peritoneal Signs, Pulsatile Mass Musculoskeletal Exam: Normal Neurological Exam: Normal Psychological Exam: Normal Skin Exam: Normal Complaint Female Dx - Course Course Of Treatment: UA + 2 blood, + 2 nitrate -treat w/ nmacrobid 100mgs bid. med normally tolerated well but did disc risks of pulm fibrosis that is rare w/ the medicine. she v/u - Differential Dx/Diagnosis Differential Diagnosis/HQI/PQRI: Ovarian Cyst, Ureteral Stone, Urinary Tract Infection Provider Diagnosis: Urinary tract infection Discharge ED - Sign-Out/Discharge Documenting (check all that apply): Patient Departure All imaging exams completed and their final reports reviewed: No Studies - Discharge Plan Condition: Stable Disposition: HOME Prescriptions: Nitrofurantoin Monohyd/M-Cryst [Macrobid 100 mg Capsule] 100 mg PO BID #14 cap Patient Education Materials: Urinary Tract Infection in Women (ED) Referrals: Lia Smith MD [Primary Care Provider] - 2 Weeks Additional Instructions: Drink plenty of water. Follow up after the antibiotics are done. Make sure to get a urine sample after to be certain that the blood has cleared from the urine. You should be seen sooner if your symptoms increase or persist. We will check a culture and you should get a call if there is resistance to the antibiotic I have prescribed. - Billing Disposition and Condition Condition: STABLE Disposition: Home
== END 2019-04-11 19:06 | disposition home or self-care (01) ==
LOC: UCCORT 17:38
DX: N39.0 Urinary tract infection, site not specified (principal)
CPT/HCPCS: 81003; 87077; 87086; 87186; 99212; G0463

== ENCOUNTER 2021-11-20 11:43 | Inpatient (IN) ==
[2021-11-20] MEDS ORDERED: Buffered Lidocaine 1% SYRIN 1 ml INTRADERM ONE (12:10)
[2021-11-20 13:21] LABS: Hematocrit 40 % (35-47); Hemoglobin 13.5 g/dL (12.0-16.0); Mean Corpuscular HGB Conc 34 g/dL (31-36); Mean Corpuscular Hemoglobin 29 pg (27-31); Mean Corpuscular Volume 87 fL (80-97); Mean Platelet Volume 9.9 fL (7.4-10.4); Platelet Count 160 10^3/uL (150-450); Red Blood Count 4.59 10^6 /uL (3.70-4.87); Red Cell Distribution Width 13 % (10-15); White Blood Count 9.9 10^3/uL (3.5-10.8)
[2021-11-20 13:50] LABS: Urine Benzodiazepine Screen None Detected (None Detect); Urine Cannabinoids Screen None Detected (None Detect); Urine Opiates Screen None Detected (None Detect)
[2021-11-20 13:58] LABS: Activated Partial Thrombo Time 24.8 seconds (26.0-38.0); Fibrinogen 493.1 mg/dL (110.8-404.3); INR 0.94 (0.89-1.11)
[2021-11-20] MEDS ORDERED: Tetan/Diph/Pertus SYR(Tdap) 0.5 ML SYR(BOOSTRIX) use SYR contains LATEX IM ONE (14:16)
[2021-11-20] MEDS ORDERED: Lactated Ringers 1000 ml BAG 1,000 ML IV ONE ×2 (14:18→14:19)
[2021-11-22] MEDS ORDERED: Calcium Carb (TUMS) 500 mg CHEW TAB PO PRN (20:03)
[2021-11-23 08:38] LABS: ABS Eosinophils 0.1 10^3/ul (0-0.6); ABS Lymphocytes 1.5 10^3/ul (1.0-4.8); ABS Monocytes 0.4 10^3/ul (0-0.8); ABS Neutrophils 6.4 10^3/ul (1.5-7.7); Eosinophil % 0.8 %; Hematocrit 39 % (35-47); Hemoglobin 13.1 g/dL (12.0-16.0); Mean Corpuscular HGB Conc 34 g/dL (31-36); Mean Corpuscular Hemoglobin 30 pg (27-31); Mean Corpuscular Volume 87 fL (80-97); Mean Platelet Volume 9.3 fL (7.4-10.4); Nucleated Red Blood Cells % 0.1; Platelet Count 143 10^3/uL (150-450); Red Blood Count 4.43 10^6 /uL (3.70-4.87); Red Cell Distribution Width 14 % (10-15); White Blood Count 8.5 10^3/uL (3.5-10.8)
[2021-11-25 10:10] LABS: Hematocrit 41 % (35-47); Mean Corpuscular HGB Conc 34 g/dL (31-36); Mean Corpuscular Hemoglobin 30 pg (27-31); Mean Corpuscular Volume 87 fL (80-97); Mean Platelet Volume 9.6 fL (7.4-10.4); Platelet Count 152 10^3/uL (150-450); Red Cell Distribution Width 13 % (10-15)
[2021-11-28 11:22] VITALS: BP 130/73
== END 2021-11-28 12:23 | disposition home or self-care (01) | DRG 566 ==
LOC: MCHOBOUT 11:43 → MCHOB 11:43
PROVIDERS: ADMIT Obstetrics & Gynecology; ATTEND Obstetrics & Gynecology

== ENCOUNTER 2021-12-20 08:04 | Inpatient (IN) ==
[2021-12-20] MEDS ORDERED: Promethazine INJ(RESTRICTED) 25 MG/ML 1 ml VIAL IV PRN (08:39)
[2021-12-20] MEDS ORDERED: Penicillin G Potassium IV 5,000,000 UNITS in NS 0.9% 100 ml BAG 100 ML IVPB ONE (08:39)
[2021-12-20] MEDS ORDERED: Lactated Ringers 1000 ml BAG 1,000 ML IV ONE (08:39)
[2021-12-20] MEDS ORDERED: Buffered Lidocaine 1% SYRIN 1 ml INTRADERM ONE (08:39)
[2021-12-20] MEDS ORDERED: Nalbuphine 10 MG/ML 1 ML VIAL IV PRN (08:39)
[2021-12-20] MEDS ORDERED: Oxytocin in LR 20,000 MILLI.UNIT/1,000 ML BAG IV SCH (08:45)
[2021-12-20] MEDS ORDERED: Lactated Ringers 1000 ml BAG 1,000 ML IV SCH ×2 (09:00)
[2021-12-20 09:18] LABS: ABS Lymphocytes 1.3 10^3/ul (1.0-4.8); ABS Monocytes 0.4 10^3/ul (0-0.8); ABS Neutrophils 6.5 10^3/ul (1.5-7.7); Eosinophil % 0.2 %; Hematocrit 40 % (35-47); Hemoglobin 13.8 g/dL (12.0-16.0); Lymphocyte % 15.8 %; Mean Corpuscular HGB Conc 35 g/dL (31-36); Mean Corpuscular Hemoglobin 30 pg (27-31); Mean Corpuscular Volume 88 fL (80-97); Mean Platelet Volume 10.6 fL (7.4-10.4); Platelet Count 142 10^3/uL (150-450); Red Blood Count 4.53 10^6 /uL (3.70-4.87); Red Cell Distribution Width 14 % (10-15); White Blood Count 8.3 10^3/uL (3.5-10.8)
[2021-12-20 10:01] LABS: Urine Benzodiazepine Screen None Detected (None Detect); Urine Cannabinoids Screen None Detected (None Detect); Urine Opiates Screen None Detected (None Detect)
[2021-12-20] MEDS: Penicillin G Potassium IV 3,000,000 UNITS in NS 0.9% 100 ml BAG 100 ML IVPB SCH (17:57)
[2021-12-20] MEDS ORDERED: Dinoprostone 10 MG VAG.SUPP VAGINAL ONE (18:29)
[2021-12-21] MEDS: Penicillin G Potassium IV 3,000,000 UNITS in NS 0.9% 100 ml BAG 100 ML IVPB SCH ×2 (00:09→04:30)
[2021-12-21] MEDS ORDERED: OBEPIDURAL (200 ML) 200 ML EPIDURAL ONE (03:57)
[2021-12-21] MEDS ORDERED: Bupivacaine 0.25% w/EPI 10 ML SDV ONE (04:19)
[2021-12-21] MEDS ORDERED: Sodium Citrate/Citric Acid LIQ 15 ML UDC PO PRN (05:13)
[2021-12-21] MEDS ORDERED: Lactated Ringers 1000 ml BAG 1,000 ML IV ONE (05:13)
[2021-12-21] MEDS ORDERED: Phenylephrine 40 mcg/mL 10mL (400mcg) SYRINGE IV PUSH PRN ×2 (05:13)
[2021-12-21 05:57] LABS: Urine Appearance Turbid; Urine Bilirubin Negative (Negative); Urine Blood 3+ (Negative); Urine Color Yellow; Urine Glucose Negative (Negative); Urine Ketones Negative (Negative); Urine Nitrite Negative (Negative); Urine Protein 2+(100 mg/dL) (Negative); Urine Specific Gravity 1.021 (1.002-1.030); Urine Urobilinogen Negative (Negative)
[2021-12-21] MEDS ORDERED: Lactated Ringers 1000 ml BAG 1,000 ML IV SCH ×2 (06:00→10:00)
[2021-12-21] MEDS ORDERED: OBEPIDURAL (200 ML) 200 ML EPIDURAL SCH (06:00)
[2021-12-21 06:05] LABS: Urine Bacteria Absent (Absent); Urine Red Blood Cell 3+(>10/hpf) (Absent); Urine Squamous Epithelial Cell Present (Absent); Urine White Blood Cell 2+(11-20/hpf) (Absent)
[2021-12-21] MEDS ORDERED: Tranexamic Acid 1 GM/100ML BAG 0 MG/0 ML BAG IV ONE (07:00)
[2021-12-21] MEDS ORDERED: Witch Hazel PAD JAR TOPICAL PRN (09:56)
[2021-12-21] MEDS ORDERED: Glycerin ADULT 2.4 gm SUPP PR PRN (09:56)
[2021-12-21] MEDS ORDERED: Dibucaine 1% OINT 28.35 GM TUBE PR PRN (09:56)
[2021-12-21] MEDS ORDERED: Oxytocin in LR 20,000 MILLI.UNIT/1,000 ML BAG IV SCH (10:00)
[2021-12-22] MEDS: Penicillin G Potassium IV 3,000,000 UNITS in NS 0.9% 100 ml BAG 100 ML IVPB SCH (07:24)
[2021-12-22 07:29] LABS: ABS Eosinophils 0.1 10^3/ul (0-0.6); ABS Lymphocytes 1.6 10^3/ul (1.0-4.8); ABS Monocytes 0.3 10^3/ul (0-0.8); Eosinophil % 0.7 %; Hematocrit 37 % (35-47); Hemoglobin 12.8 g/dL (12.0-16.0); Lymphocyte % 20.3 %; Mean Corpuscular HGB Conc 34 g/dL (31-36); Mean Corpuscular Hemoglobin 30 pg (27-31); Mean Corpuscular Volume 89 fL (80-97); Mean Platelet Volume 10.7 fL (7.4-10.4); Platelet Count 127 10^3/uL (150-450); Red Blood Count 4.21 10^6 /uL (3.70-4.87); Red Cell Distribution Width 14 % (10-15)
[2021-12-23 07:34] VITALS: BP 121/73
[2021-12-23] MEDS ORDERED: Measles, Mumps,Rubella VACC 0.5 ML/VIAL SUBCUT ONE (12:27)
== END 2021-12-23 18:38 | disposition home or self-care (01) | DRG 806 ==
LOC: MCHOBOUT 08:04 → MCHOB 08:07
PROVIDERS: ADMIT Obstetrics & Gynecology; ATTEND Obstetrics & Gynecology